=== PATIENT | male | born 1960 | race Caucasian/White ===

== ENCOUNTER → 2021-01-14 13:09 | Outpatient (CLI) | payer BC, SELFPAY ==
--- NOTE | 2021-01-14 13:06 | CA_ITS ---
APPROVED REPORT EXAM: Comprehensive 2D, Doppler, and color-flow Echocardiogram Mine Exploration Engineer: Abena Dutta RVT Ht: 5 ft 6 in Wt: 225lbs BSA: 2.10 BP: 145/95 mmHg Indications: SOA,PALPS TDS-PT BODY HABITUS 2D Dimensions LVOT 2.40 cm (M/F) 1.5-2.5 LA Volume 59.50 mL LA Volume Index 28.33 mL/m2 (M/F) 16-34 M-Mode Dimensions RVDd 2.43 cm (0.9-2.6) LA Diam 3.28 cm (1.9-4.0) LVDd 3.39 cm (3.5-5.7) Ao Diam 3.28 cm (2.0-3.7) LVDs 1.94 cm (3.5-5.7) IVSd 1.14 cm (0.6-1.1) PWd 0.76 cm (0.6-1.1) EF (Teich) 74.90% FS 42.80% EDV (Teich) 47.10 mL TAPSE 2.52 (<1.7) ESV (Teich) 11.80 mL LV Diastology E Decel Time 183.00 (160-240 msec) E/A Ratio 1.6 MED E' 10.00 (< 7 cm/sec) E'/MED E' Ratio 10.12 (>14) LAT E' 9.40 (<10 cm/sec) E/LAT E' Ratio 10.77 (>14) Aortic Valve AO Peak GR. 10.90 mmHg Mitral Valve MV E Max Dino. 101.00 (40-130 cm/s) MV A Velocity 62.00 (40-130 cm/s) E/A Ratio 1.63 MV Decel. Time 183.00 (160-240 ms) MV PHT 54.00 ms Pulmonary Valve PV Peak Velocity 82.00 (50-150 cm/s) Tricuspid Valve TR P. Velocity 194.00 cm/s RAP Estimate 10.00 mmHg RVSP 25.10 mmHg Left Ventricle Left atrium is upper limit of normal, left ventricle is normal size, visually estimated ejection fraction 55% with no regional wall motion abnormality, diastolic parameters are inconclusive. Right Ventricle Right atrium and right ventricle are normal size and contractility. Aortic Valve Aortic valve is minimally thickened and fibrosed, there is no aortic stenosis or aortic insufficiency. Mitral Valve Mitral valve is grossly normal, there is mild mitral regurgitation. Tricuspid Valve Tricuspid grossly normal, there is mild tricuspid regurgitation, tricuspid regurgitation jet velocity is inadequate for calculation of the right ventricular systolic pressure. Pulmonic Valve Pulmonic valve is poorly visualized. Great Vessels Aortic root is normal size. Pericardium No significant pericardial effusion noted. Conclusion 1. Normal left ventricular size, preserved left ventricular systolic function, visually estimated ejection fraction 55% with no regional wall motion abnormality, diastolic parameters are inconclusive. 2. Mild mitral and tricuspid regurgitation. 3. No significant pericardial effusion noted. Electronically signed by : Omar Nance MD 01/15/2021 15:44:14
== END ==
PROVIDERS: PCP Family Medicine; Visit Provider Family Medicine
DX: R06.02 Shortness of breath (principal); R00.2 Palpitations; R00.0 Tachycardia, unspecified
CPT/HCPCS: 93270; 93306

== ENCOUNTER → 2021-01-23 10:57 | Outpatient (CLI) | payer BC, SELFPAY ==
[2021-01-23 13:18] LABS: Chloride 104 mmol/L (98-107); Sodium 142 mmol/L (136-145)
[2021-01-23 13:21] LABS: Blood Urea Nitrogen 20 mg/dl (9-20); Calcium 9.5 mg/dl (8.4-10.2); Carbon Dioxide 27 mmol/L (22.0-30.0); Estimated Glomerular Filt Rate 69 ml/min (>60); GFR (African American) 83 ML/MIN (>60); Glucose 108 mg/dl (74-100)
[2021-01-23 13:29] LABS: NT Pro Brain Natriuretic Pep. 217 pg/mL (0-125)
--- NOTE | 2021-01-23 13:55 | CT_ITS ---
PROCEDURE: CT ANGIO CHEST PE PROTOCOL CLINCIAL INDICATION: dyspnea COMPARISON: CR XR CHEST PORTABLE from 09/11/2019 TECHNIQUE: IV Contrast: 70ML Isovue 370 Axial images obtained with sagittal and coronal reformats. All CT scans at the facility use one or more dose reduction, viz: automated exposure control, ma/kV adjustment per patient size (including targeted exams where dose is matched to indication, i.e. head), or iterative reconstruction technique. FINDINGS: HEART AND MEDIASTINAL STRUCTURES: No evidence of pulmonary embolus, aortic aneurysm, or aortic dissection. LUNGS AND PLEURAL SPACES: There is a 6 mm nodule along the left hilum just along the inferior aspect of the major fissure. 5 mm nodular opacity noted along the right minor fissure. No lobar consolidation or collapse. No suspicious nodules. BONY STRUCTURES: Degenerative changes thoracic spine with mild wedging of T5-T6 and T7 which may be chronic. UPPER ABDOMEN: Mild nodularity of the left adrenal gland nonspecific. Fatty liver. ADDITIONAL FINDINGS: No other significant abnormalities. IMPRESSION: No acute finding. No evidence of pulmonary embolus. Small bilateral fissural nodules probably benign and may be confirmed with follow-up Dictated by: Jose Ramon Castellanos MD 01/23/2021 14:53 Jose Ramon Castellanos MD in [facility] 01/23/2021 14:53
== END ==
PROVIDERS: PCP Family Medicine; Visit Provider Internal Medicine Cardiovascular Disease
DX: R06.00 Dyspnea, unspecified (principal); R07.89 Other chest pain; R00.2 Palpitations; R00.1 Bradycardia, unspecified; I48.91 Unspecified atrial fibrillation; R94.31 Abnormal electrocardiogram [ECG] [EKG]; I10 Essential (primary) hypertension; E78.5 Hyperlipidemia, unspecified; Z82.49 Family history of ischemic heart disease and other diseases of the circulatory system; R06.83 Snoring; R40.0 Somnolence
CPT/HCPCS: 36415; 71275; 80048; 83880; Q9967

== ENCOUNTER → 2021-02-04 12:01 | Outpatient (CLI) | payer BC, SELFPAY ==
--- NOTE | 2021-02-04 13:12 | NM_ITS ---
APPROVED REPORT Exam: Nuclear Stress Test Indication: SOB, Afib, Abnormal EKG, HTN, Family history Patient Location: Outpatient Stress Tech: Katerin Rosas [place] Tech:Mercedez Beltran, ARRT, RT (R)(N) Ht: 5 ft 6 in Wt: 225 lbs HR: 60 bpm BP: 140/95 mmHg BSA: 2.10 m2 BMI: 36.3 History: SOB, Afib, Abnormal EKG, HTN, Family history Procedure: Patient received a 0.4 mg of intravenous Lexiscan, resting heart rate 60 bpm, resting blood pressure 140/95 mmHg, with Lexiscan maximum heart rate achived was 93 bpm which is Less than 85 % of the maximum predicted heart rate and blood pressure was 150/91 mmHg. With Lexiscan, patient denied any complaint of chest pain. Electrocardiogram Resting electrocardiogram showed sinus rhythm right ventricular conduction delay nonspecific ST-T changes, with Lexiscan there is less than 1.[address] segment depression noted from the baseline EKG. The EKG portion of the Lexiscan is nondiagnostic. Cardiac Stress and Resting SPECT Images: Cardiac Stress and Resting SPECT images were obtained using technetium 99m Myoview 31.7 mCi stress and 10.75 mCi at rest. Gated SPECT for analysis of segmental wall motion and calculation of the ejection fraction also done. Prone images were also obtained. Cardiac stress and resting SPECT images show uniform myocardial activity without segmental perfusion abnormality, computer derived ejection fraction is 57% with no regional wall motion abnormality, right ventricle is mildly enlarged with normal contractility. Conclusion: 1. The EKG portion of the Lexiscan is nondiagnostic. 2. No scintigraphic evidence of reversible ischemia seen, computer derived ejection fraction is 57% with no regional wall motion abnormality, right ventricle is mildly enlarged with normal contractility. 3. Likely normal Lexiscan Myoview study. Electronically signed by : Omar Nance MD 02/05/2021 14:57:36
--- NOTE | 2021-02-04 13:23 | HMH.ITSHM ---
Current Home Medications as stated by this patient Geo Akers or customer response representative. []RIVAROXABAN METOPROLOL ASA AMLODIPINE LISINOPRIL FLUTICASONE VITAMIN D3 ATORVASTATIN
--- NOTE | 2021-02-04 13:56 | CA_ITS ---
APPROVED REPORT Exam: Pharmacologic Technologist: Katerin Rosas, Ht: 5 ft 6 in Wt: 232 lbs BSA: 2.13 m2 HR: 60 bpm BP: 140/95 mmHg Medical History Medications: Amlodipine,,,,, Aspirin,,,,, Vitamin D3,,,,, Atorvastatin,,,,, XaRELTO,,,,, Toprol XL,,,,, Lisinopri/HCTZ,,,,, Stress Test Details Test: LEXISCAN HR Resting HR: 65 bpm Max Heart Rate (APMHR): 161.045327 bpm Max HR Achieved: 114 bpm Target HR (85% APMHR): 136.983691 bpm % of APMHR: 70.81 Recovery HR: 73 bpm BP Resting BP: 140/95 mmHg Max BP: 150/91 mmHg Recovery BP: 141.0/92.0 mmHg ECG Resting ECG: NSR, PAC's, short periods of Afib, borderline criteria for IVCD, diffuse ST-T abns Clinical Exercise duration: 04:10 min Highest Stage Achieved: Exercise capacity: 1.0 METs Stress ECG Conclusion Symptoms: SOA, Malaise, lightheaded. No CP. Arrhythmias/Ectopy: PAC's, short periods of Afib. ST-T Changes: Exaggeration of baseline abns. Conclusion: Non-diagnostic Lexiscan stress. Myoview images reported separately. Test Summary REST . . . . . . . Resting REST 02:54 . . 65 . 140/ 95 . . Stage 1 . . . . . . . Cardiolite injected Stage 1 01:00 . . 101 . . . . Stage 2 01:00 . . 92 . 150/ 91 . . Stage 3 01:00 . . 85 . 141/ 86 . . Stage 4 01:00 . . 79 . 146/ 84 . . Stage 4 01:10 . . 75 . 146/ 84 . Stop exercise at 04:10 RECOVERY 01:00 . . 85 . . . . RECOVERY 02:00 . . 81 . 146/102 . . RECOVERY 03:00 . . 73 . 146/102 . . RECOVERY 03:27 . . 68 . 141/ 92 . . Electronically signed by : Omar Nance MD 02/05/2021 14:52:30
== END ==
PROVIDERS: PCP Family Medicine; Visit Provider Internal Medicine Cardiovascular Disease
DX: R07.89 Other chest pain (principal); R06.00 Dyspnea, unspecified; I48.91 Unspecified atrial fibrillation; R00.1 Bradycardia, unspecified; R00.2 Palpitations; R94.31 Abnormal electrocardiogram [ECG] [EKG]; I10 Essential (primary) hypertension; E78.5 Hyperlipidemia, unspecified; R06.83 Snoring; R40.0 Somnolence; Z82.49 Family history of ischemic heart disease and other diseases of the circulatory system
CPT/HCPCS: 78452; 93017; G0399

== ENCOUNTER → 2021-03-17 16:31 | Outpatient (CLI) | payer OTHER, SELFPAY | PROVIDERS: PCP Family Medicine; Visit Provider Nurse Practitioner | DX: Z20.822 Contact with and (suspected) exposure to COVID-19 (principal) | CPT/HCPCS: C9803; U0003; U0005 ==

== ENCOUNTER → 2021-05-15 14:17 | Outpatient (CLI) | payer OTHER, SELFPAY ==
--- NOTE | 2021-05-15 14:22 | XR_ITS ---
PROCEDURE INFORMATION: Exam: XR Left Knee Exam date and time: 05/15/2021 2:22 PM Age: 61 years old Clinical indication: Pain; Knee; Left; Additional info: Acute medial pain of lt knee TECHNIQUE: Imaging protocol: XR Left knee. Views: 3 views. COMPARISON: No relevant prior studies available. FINDINGS: Bones/joints: There is no evidence of acute fracture.There is no evidence of malalignment or dislocation. Soft tissues: Normal. IMPRESSION: There is no evidence of acute fracture.There is no evidence of malalignment or dislocation.
--- NOTE | 2021-05-15 14:22 | XR_ITS ---
PROCEDURE INFORMATION: Exam: XR Lumbosacral Spine Exam date and time: 05/15/2021 2:22 PM Age: 61 years old Clinical indication: Low back pain; Additional info: Pain in lt leg, lumbar radiculopathy TECHNIQUE: Imaging protocol: XR of the lumbosacral spine. Views: 4 or 5 views. COMPARISON: No relevant prior studies available. FINDINGS: Bones/joints: There is no evidence of acute fracture.There is no evidence of malalignment or dislocation. Anterior osteophyte formation L1 through L5 Intervertebral disc space narrowing L5/S1 consistent with degenerative disc disease Soft tissues: Unremarkable. IMPRESSION: There is no evidence of acute fracture.There is no evidence of malalignment or dislocation.
== END ==
PROVIDERS: PCP Family Medicine; Visit Provider Family Medicine
DX: M25.562 Pain in left knee (principal); M79.605 Pain in left leg; M54.16 Radiculopathy, lumbar region
CPT/HCPCS: 72110; 73562

== ENCOUNTER → 2022-01-27 06:45 | Outpatient (CLI) | payer OTHER, SELFPAY ==
[2022-01-27 18:32] LABS: Basophils # 0.2 K/mm3 (0-0.2); Basophils % 1.8 % (0.1-2.0); Eosinophils # 0.1 K/mm3 (0.0-0.4); Eosinophils % 1.7 % (0.1-12.0); Hematocrit 45.4 % (42.0-52.0); Lymphocytes # 3.7 K/mm3 (0.7-4.5); Mean Corpuscular HGB Conc 33.1 g/dL (31.8-35.4); Mean Corpuscular Volume 93.6 fl (80-94); Mean Platelet Volume 10.2 fl (7.4-10.4); Monocytes # 0.5 K/mm3 (0.1-1.0); Monocytes % 6.1 % (1.7-9.3); Neutrophils # 3.9 K/mm3 (1.8-7.8); Neutrophils % 46.4 % (37.0-80.0); Platelet Count 212 K/mm3 (142-424); Red Blood Count 4.85 M/mm3 (4.60-6.20); Red Cell Distribution Width 13.7 % (11.5-17.5); White Blood Count 8.4 K/mm3 (4.8-10.8)
[2022-01-27 18:45] LABS: Alanine Aminotransferase 52 U/L (12-78); Albumin Level 4.4 g/dl (3.5-5.0); Albumin/Globulin Ratio 1.6 (1.1-1.8); Alkaline Phosphatase 74 U/L (38-126); Anion Gap 12.2 mEq/L (5-15); Aspartate Amino Transferase 41 U/L (17-59); Bilirubin,Total 0.5 mg/dl (0.2-1.3); Blood Urea Nitrogen 12 mg/dl (9-20); Calcium 9.3 mg/dl (8.4-10.2); Carbon Dioxide 26 mmol/L (22.0-30.0); Chloride 104 mmol/L (98-107); Chol/HDL Ratio 5.1 (1-3.5); Cholesterol 138 mg/dl (140-200); Estimated Glomerular Filt Rate 76 ml/min (>60); GFR (African American) 92 ML/MIN (>60); Globulin 2.8 g/dL (1.3-3.2); Glucose 107 mg/dl (74-100); HDL Cholesterol 27 mg/dl (40-60); Potassium 4.2 mmoL/L (3.5-5.1); Sodium 138 mmol/L (136-145); Total Protein,Serum 7.2 g/dl (6.3-8.2); Triglycerides 271 mg/dl (30-150); VLDL Cholesterol 54 mg/dL (0-40)
[2022-01-27 18:51] LABS: Creatinine,Urine Random 123 mg/dL (Not Estab.)
[2022-01-27 19:06] LABS: Microalbumin < 6.000 mg/L (0-16.7)
[2022-01-27 19:16] LABS: Prostate Specific Ag Screen 1.4 ng/ml (0.0-4.0); Thyroid Stimulating Hormone 1.57 uIU/mL (0.465-4.68)
[2022-01-29 08:19] LABS: Direct LDL Cholesterol 68 mg/dL (100-129)
[2022-02-04 21:26] LABS: 1,25 Dihydroxy Vitamin D 45 pg/mL (.); 1,25-Dihydroxy, Vitamin D-2 <10 pg/mL (.); 1,25-Dihydroxy, Vitamin D-3 45 pg/mL (.)
== END ==
PROVIDERS: PCP Family Medicine; Visit Provider Family Medicine
DX: I10 Essential (primary) hypertension (principal); E78.00 Pure hypercholesterolemia, unspecified; I48.91 Unspecified atrial fibrillation; E55.9 Vitamin D deficiency, unspecified; R73.01 Impaired fasting glucose; Z12.5 Encounter for screening for malignant neoplasm of prostate
CPT/HCPCS: 80053; 80061; 82043; 82570; 82652; 84443; 85025; G0103

== ENCOUNTER → 2022-06-15 18:07 | Outpatient (CLI) | payer BC, SELFPAY | PROVIDERS: PCP Family Medicine; Visit Provider Nurse Practitioner Family | DX: G47.33 Obstructive sleep apnea (adult) (pediatric) (principal); I48.91 Unspecified atrial fibrillation | CPT/HCPCS: 94762 ==

== ENCOUNTER → 2024-07-04 08:46 | Outpatient (CLI) | payer BC, SELFPAY | LOC: SL 08:46 | PROVIDERS: PCP Specialist; Visit Provider Specialist | DX: G47.33 Obstructive sleep apnea (adult) (pediatric) (principal); R63.4 Abnormal weight loss; I10 Essential (primary) hypertension | CPT/HCPCS: G0399 ==